=== PATIENT | male | born 1985 | race Caucasian/White ===

== ENCOUNTER → 2022-05-21 13:35 | Outpatient (CLI) | payer OTHER, SELFPAY ==
--- NOTE | ~2022-05-21 | XR_ITS ---
EXAMINATION: XR chest 2V 05/21/2022 14:11 INDICATION: Dyspnea. Night sweats. PROCEDURE: 2 view chest COMPARISON: No prior studies for comparison. FINDINGS: The lungs are clear. The cardiomediastinal silhouette is within normal limits. There are no pleural effusions. There is no pneumothorax suspected. IMPRESSION: 1: NO ACUTE CARDIOPULMONARY DISEASE. Reviewed, dictated and finalized at location A. RMATICS SPEC
== END ==
PROVIDERS: PCP Family Medicine Adolescent Medicine; Visit Provider Family Medicine Adolescent Medicine
DX: R06.09 Other forms of dyspnea (principal); R61 Generalized hyperhidrosis
CPT/HCPCS: 71046

== ENCOUNTER 2024-04-09 08:51 | Outpatient (CLI) | payer OTHER, SELFPAY ==
--- NOTE | 2024-04-17 12:16 | P.SLEEP_ITS ---
Sleep Study - Home Unattended Date of Study: 04/09/24 Ordering Provider: Alvaro Madrid APRN Interpreting Provider: Mervat Collins MD Home Sleep Study Type: Watch PAT Height: 1.8 m Weight: 118.841 kg Body Mass Index: 36.5 Neck Circumference (inches): 21.5 [place]: 4 Reason for Sleep Study Loud snoring, witnessed apnea, sleep is not refreshing, excessive daytime sleepiness Sleep History Diaz Ch is a 38-year-old man with anxiety and hypertension. He was evaluated for loud snoring, witnessed apneas, excessive daytime sleepiness with an [place] of 11 in the office and non restorative sleep. He does not have morning headaches. He does not nap but if an opportunity for a nap presented itself, he thinks he could nap. He does not have drowsy driving. He does become drowsy during work meetings. He does not have uncomfortable feelings in his legs before sleep and does not think he kicks at night. There may be a family history of sleep apnea. He suspects his father has obstructive sleep apnea. He often awakens with a dry mouth or a sore throat in the morning. He does not have nocturnal heartburn. Normally he needs 15 minutes to fall asleep. He uses no sleep aid the night of the test. He generally does not have difficulty falling asleep. When he awakens at night he has difficulty returning to sleep. He is very anxious about sleep. He does not grind his teeth or clench his jaws at night. He denies any uncomfortable leg feelings or kicking. He wakes before his desired wake time. His sleep is never restorative, even on days off. His normal bedtime is 11:00 p.m. falling asleep within 15 minutes spending 6-1/2 hours in bed, 6 hours sleeping. On the day after the home sleep test he woke at 5:00 a.m. without an alarm. His sleep was worse than usual. He wakes 2-3 times during the night to go to the bathroom. He also may wake at night with anxiety related to his work. Habits: Tobacco: None Caffeine: 1-2 cups daily Alcohol: rarely Recreational substances: none PMFSH Past Medical History Medical History Snoring Hypogonadism Elevated liver transaminase level Anxiety Obesity Essential (primary) hypertension Family History Family History Sibling Malignant neoplasm of prostate Social History Social History Smoking status: Never smoker Alcohol intake: current Alcohol use details: rarely Substance use: never Substance use type: does not use Medications Home Medications ?Medication ?Instructions ?Recorded ?Confirmed ?Type needle (disp) 18 G 18 gauge x 1 #10 ea 07/31/23 01/02/24 Rx syringe with needle 3 mL 22 x 1 #10 ea 07/31/23 01/02/24 Rx 1/2 lisinopril 20 mg tablet 20 mg PO DAILY #90 tabs 09/16/23 01/02/24 Rx phentermine 37.5 mg tablet 37.5 mg PO DAILY #30 tabs 01/03/24 Rx testosterone cypionate 100 mg/mL 75 mg (0.75 mL) IM WEEKLY #10 mL 04/06/24 Rx intramuscular oil Sleep Procedure The sleep study was completed using [employer] a technically adequate device with seven channels: peripheral arterial tone, actigraphy, body position, snore, respiratory movement, pulse oximetry, sleep staging, and heart rate. Prior to using the device, the patient received verbal and written instructions for its application and was provided with the help desk phone number for additional telephonic instruction with 24-hour availability of qualified personnel to answer questions. Sleep Architecture The total recording time is 6 hrs, 3 min. The total sleep time is 5 hrs, 37 min. Sleep latency is 18 minutes. REM latency is 97 minutes. The patient had 2 episodes of waking. Sleep architecture shows 18.4% deep sleep, 52.1% light sleep, and 29.5% stage REM. The patient spent 51.6% of total sleep time in the supine position. Sleep efficiency was 92% Respiratory Analysis The overall AHI (pAHI 3%:) is 7.0. The central AHI is 0.6. The AHI was 6.6 in NREM and 7.9 in REM sleep. The AHI was 11.2 in Supine and 2.6 in Non-supine sleep. Percent of Serjio Dodge respirations is 0.0. Oximetry Data The oxygen desaturation index (CELESTE 4%:) is 2.8. The mean saturation is 94%, and the lowest saturation is 89%. Time spent with saturation < 88% is 0.0 minutes. Snoring Profile Snoring average intensity is 41 dB. The patient snored above 45 decibels for 8.6 minutes, 2.6% of sleep time. Cardiac Profile The average pulse rate is 65 beats per minutes. The lowest pulse rate is 48 bpm. The highest pulse rate reported is 97 bpm. Atrial fibrillation was not detected by the cardiac rhythm analysis. Assessment and Plan Assessment and Plan (1) Obstructive sleep apnea: Code(s): G47.33 - Obstructive sleep apnea (adult) (pediatric) Status: Acute Assessment and Plan: This home sleep test using WatchPat on April 09, 2024 shows mild obstructive sleep apnea using a 3% criteria, the apnea-hypopnea index is 7.0 mildly worse in the supine position. Lowest saturation is 89% with mild to moderate snoring. The patient has medical comorbidities including hypertension and mood disorder, anxiety. With these comorbidities he is a candidate for treatment for his obstr uctive sleep apnea. his office note indicates that he is interested in an oral appliance. He is a candidate for a Sleep Dental referral. he is also a candidate for PAP therapy if he is determined not to be a good candidate for an oral appliance. BMI is 36. Weight management is advised. Clinical data suggests that weight loss of 10% can reduce the severity of respiratory events and snoring and i mprove AHI by as much as 25%. Data The data obtained during this sleep study is adequate for interpretation. Certification This sleep study has been reviewed by a board certified sleep medicine physician.
[2024-04-19 11:48] VITALS: BMI 36.5
== END 2024-04-10 14:59 | disposition home or self-care (01) ==
PROVIDERS: PCP Family Medicine Adolescent Medicine; Visit Provider Nurse Practitioner Family
DX: G47.10 Hypersomnia, unspecified (principal); G47.33 Obstructive sleep apnea (adult) (pediatric)
CPT/HCPCS: 95800

== ENCOUNTER 2024-07-26 08:23 | Emergency (ER) | payer OTHER, SELFPAY ==
--- NOTE | ~2024-07-26 | XR_ITS ---
CHEST RADIOGRAPH, PA AND LATERAL CLINICAL HISTORY: cough x 2 weeks . COMPARISON: 05/21/2022 TECHNIQUE: PA and lateral views of the chest. FINDINGS The cardiomediastinal silhouette is unremarkable. Peribronchial thickening is identified within the bilateral pulmonary [place], an interval change from p rior. The lungs are otherwise clear. IMPRESSION: Peribronchial thickening, without focal infiltrate or effusion. Reviewed, dictated and finalized at location A.
--- NOTE | 2024-07-26 08:27 | ED.GENADULT ---
HPI - General Adult General Chief complaint: Upper Respiratory Infection Stated complaint: COUGH/COLD Time Seen by Provider: 07/26/24 08:27 Source: patient Mode of arrival: ambulatory Limitations: no limitations History of Present Illness HPI narrative: 38-year-old male patient presents to the [facility] with complaints of cold symptoms for the past 2 weeks. Any fevers. Patient states that his most bothersome symptom now is a cough and coughing up phlegm. Patient states that time that has some red tinge to it. Patient states he has had a runny nose and some congestion. Patient states he feels like there might be some rattling in his chest. Denies any chest pain or shortness of breath. Denies any abdominal pain, nausea, vomiting or diarrhea. Patient states he is not had any vaccines for COVID or influenza this year. Patient states he did not get tested for COVID or influenza with the symptoms 1st started. Patient states he has been taking [id number] Sudafed, Shaista, Flonase, Tylenol Motrin And Mucinex as needed. Related Data Allergies Allergy/AdvReac Type Severity Reaction Status Date / Time cefaclor (From [facility]) Allergy Mild Rash Verified 07/26/24 08:33 Review of Systems Review of Systems: CONSTITUTIONAL: Denies fever, chills, or sweats. EYES: Denies visual changes, redness, or discharge. ENT: Positive rhinorrhea, congestion, sore throat, denies otalgia. CARDIOVASCULAR: Denies chest pain, palpitations, or edema. RESPIRATORY: pots cough , denies dyspnea. GASTROINTESTINAL: Denies abdominal pain, nausea, vomiting, or diarrhea. GENITOURINARY: Denies dysuria or hematuria. SKIN: Denies rash or itching. MUSCULOSKELETAL: Denies back pain, joint pain, or myalgia. NEUROLOGIC: Denies headache, numbness, or weakness. PSYCHIATRIC: Denies anxiety or depression. [facility] Past Medical History Medical History Snoring Hypogonadism Elevated liver transaminase level Anxiety Obesity Essential (primary) hypertension Family History Family History Sibling Malignant neoplasm of prostate Social History Social History (Reviewed 07/26/24 @ 08:51 by PAULA Saba Smoking status: Never smoker Alcohol intake: current Alcohol use details: rarely Substance use: never Substance use type: does not use Do You Feel Safe in your Home?: Yes Lack of Transportation: No Lack of Food: Never True Current Housing: I Have Housing Concerned About Future Housing: No Difficulty Paying Gas/Electric Bills: No Difficulty Paying for Meds: No Currently Unemployed: No Education: Bachelor's Degree Difficulty w/ Childcare or Family Care: No Comments At the time of my signature I agree with nursing past medical history, surgical, social, and family history. There is no relevant family history pertinent to the presenting complaint. Exam Narrative: GENERAL: Well-appearing, well-nourished, and in no acute distress. HEAD: Normocephalic, atraumatic. EYES: PERRLA and EOMI. ENT: Nares with air edema and erythema and swollen shut noted to the right near, no rhinorrhea or epistaxis. Mucous membranes moist. posterior pharynx with no erythema tonsillar enlargement or exudates lesions present. NECK: Supple. No lymphadenopathy CHEST: Patient has slight crackles noted to bilateral lower lobes on auscultation. Bilateral upper lobes are clear. No respiratory distress. HEART: Regular rate and rhythm. No murmur heard. Normal peripheral pulses. ABDOMEN: Soft, nontender, nondistended, normal active bowel sounds. EXTREMITIES: Normal range of motion. No edema. SKIN: Warm, dry, no rash. NEURO: No focal deficits. Alert and oriented x3. Course Course Level of Care: Express Care Visit Reevaluation(s) Reevaluation #1: re-evaluated patient notified him that his x-ray is negative for pneumonia but does show some wall thickening most likely due to a bronchitis. We will discharge him home with some oral steroids, albuterol inhaler Tessalon Perles for the cough. Discussed with patient if he continues to have symptoms or CIS symptoms worsen please follow-up with his primary doctor go the ER for further evaluation. Patient is aware the plan of care denies any other questions or concerns at this time. Date: 07/26/24 Time: 09:31 Vital Signs Vital signs: Vital Signs Temperature 36.2 C L 07/26/24 08:33 Pulse Rate 98 07/26/24 08:33 Respiratory Rate 16 07/26/24 08:33 Blood Pressure 144/90 H 07/26/24 08:33 Pulse Oximetry 100 07/26/24 08:33 Temperature 36.2 C L 07/26/24 08:33 Pulse Rate 98 07/26/24 08:33 Respiratory Rate 16 07/26/24 08:33 Blood Pressure 144/90 H 07/26/24 08:33 Pulse Oximetry 100 07/26/24 08:33 vital signs reviewed. The patient has been informed that they may have pre-hypertension or Hypertension based on a BP reading in the department. I recommend that the patient call the primary care provider listed on their discharge instructions or a physician of their choice this week to arrange follow up for further evaluation of possible pre-hypertension or Hypertension Medical Decision Making Differential Diagnosis Differential Diagnosis: Differential diagnosis: Allergic rhinitis, chronic sinusitis, tonsillitis, acute sinusitis, infectious mononucleosis, seasonal influenza, pertussis, diphtheria, meningococcal disease, viral syndrome, viral bronchitis, RSV, COVID-19 Vital Signs Vital Signs: Vital Signs Temperature 36.2 C L 07/26/24 08:33 Pulse Rate 98 07/26/24 08:33 Respiratory Rate 16 07/26/24 08:33 Blood Pressure 144/90 H 07/26/24 08:33 Pulse Oximetry 100 07/26/24 08:33 Temperature 36.2 C L 07/26/24 08:33 Pulse Rate 98 07/26/24 08:33 Respiratory Rate 16 07/26/24 08:33 Blood Pressure 144/90 H 07/26/24 08:33 Pulse Oximetry 100 07/26/24 08:33 Lab Data Labs: Lab Results 07/26/24 Range/Units 09:08 POC Grp A Strep Screen Negative (Negative) Imaging Data Radiologist's impression: [facility] [place] [address] [facility] [place] [address] XRay Report Signed Patient: Diaz Ch : 1985 MR#: [id number] Age: 38 Acct:[id number] Loc: [facility] ADM Date: 07/26/24Attending Dr: Ordering Physician: Claudine Hollingsworth APRN Date of Service: 07/26/24 Procedure(s): XR chest 2V Accession Number(s): [id number] cc: Claudine Hollingsworth APRN; Betito Hobson MD~ CHEST RADIOGRAPH, PA AND LATERAL CLINICAL HISTORY: cough x 2 weeks . COMPARISON: 05/21/2022 TECHNIQUE: PA and lateral views of the chest. FINDINGS The cardiomediastinal silhouette is unremarkable. Peribronchial thickening is identified within the bilateral pulmonary [place], an interval change from prior. The lungs are otherwise clear. IMPRESSION: Peribronchial thickening, without focal infiltrate or effusion. Reviewed, dictated and finalized at location A. Critical Care Time Critical Care Time Critical Care Time: No Discharge Plan Discharge Clinical Impression: Bronchitis Patient Disposition: Home, Self-Care Condition: Stable Instructions: Antibiotic Form, Acute Bronchitis (ED) Additional Instructions: Acute bronchitis is swelling and irritation in the air passages of your lungs. This irritation may cause you to cough or have other breathing problems. Acute bronchitis often starts because of another viral illness, such as a cold or the flu. The illness spreads from your nose and throat to your windpipe and airways. Bronchitis is often called a chest cold. Acute bronchitis lasts about 2-6 weeks and is usually not a serious illness. AFTER YOU LEAVE: Medicines: Ibuprofen or acetaminophen: These medicines help lower a fever. They are available without a doctor's order. Ask your healthcare provider which medicine is right for you. Ask how much to take and how often to take it. Follow directions. These medicines can cause stomach bleeding if not taken correctly. Ibuprofen can cause kidney damage. Do not take ibuprofen if you have kidney disease, an ulcer, or allergies to aspirin. Acetaminophen can cause liver damage. Do not drink alcohol if you take acetaminophen. Cough medicine: This medicine helps loosen mucus in your lungs and make it easier to cough up. This can help you breathe easier. Inhalers: You may need one or more inhalers to help you breathe easier and cough less. An inhaler gives your medicine in a mist form so that you can breathe it into your lungs. Ask your healthcare provider to show you how to use your inhaler correctly. Steroid medicine: Steroid medicine helps open your air passages so you can breathe easier. Take your medicine as directed. Call your healthcare provider if you think your medicine is not helping or if you have side effects. How to use an inhaler: Shake the inhaler well to make sure you get the correct amount of medicine per puff. Remove the cover from your inhaler's mouthpiece. If you are using a spacer, connect your inhaler to the flat end of the spacer. Exhale as much air from your lungs as you can. Put the mouthpiece in your mouth past your front teeth and rest it on the top of your tongue. Do not block the mouthpiece opening with your tongue. Breathe in through your mouth at a slow and steady rate. As you do this, press the inhaler to release the puff of medicine. Finish breathing in slowly and deeply as you inhale the medicine. When your lungs are full, hold your breath for 10 seconds. Then breathe out slowly through puckered lips or through your nose. If you need to take more puffs, wait at least 1 minute between each puff. Rinse your mouth with water after you use the inhaler. This may keep you from getting a mouth infection or irritation. Follow the instructions that come with your inhaler to clean it. You should clean your inhaler at least once a week. Ways to care for yourself: Avoid alcohol: Alcohol dulls your urge to cough and sneeze. When you have bronchitis, you need to be able to cough and sneeze to clear your air passages. Alcohol also causes your body to lose fluid. This can make the mucus in your lungs thicker and harder to cough up. Avoid irritants in the air: Do not smoke or allow others to smoke around you. Avoid chemicals, fumes, and dust. Wear a face mask if you must work around dust or fumes. Stay inside on days when air pollution levels are high. If you have allergies, stay inside when pollen counts are high. Avoid aerosol products. This includes spray-on deodorant, bug spray, and hair spray. Drink more liquids: Most people should drink at least 8 eight-ounce cups of water a day. You may need to drink more liquids when you have acute bronchitis. Liquids help keep your air passages moist and help you cough up mucus. Get more rest: You may feel like resting more. Slowly start to do more each day. Rest when you feel it is needed. Eat healthy foods: Eat a variety healthy foods every day. Your diet should include fruits, vegetables, breads, and protein (such as chicken, fish, and beans). Dairy products (such as milk, cheese, and ice cream) can sometimes increase the amount of mucus your body makes. Ask if you should decrease your intake of dairy products. Use a humidifier: Use a cool mist humidifier to increase air moisture in your home. This may make it easier for you to breathe and help decrease your cough. Decrease your risk of acute bronchitis: Get the vaccinations you need: Ask your healthcare provider if you should get vaccinated against the flu or pneumonia. Avoid things that may irritate your lungs: Stay inside or cover your mouth and nose with a scarf when you are outside during cold weather. You should also stay inside on days when air pollution levels are high. If you have allergies, stay inside when pollen counts are high. Avoid using aerosol products in your home. This includes spray-on deodorant, bug spray, and hair spray. Avoid the spread of germs: Wash your hands often with soap and water. Carry germ-killing gel with you. You can use the gel to clean your hands when there is no soap and water available. Do not touch your eyes, nose, or mouth unless you have washed your hands first. Always cover your mouth when you cough. Cough into a tissue or your shirtsleeve so you do not spread germs from your hands. Try to avoid people who have a cold or the flu. If you are sick, stay away from others as much as possible. Follow up with your healthcare provider as directed: Write down questions you have so you will remember to ask them during your follow-up visits. Contact your healthcare provider if: You have a fever. Your skin becomes itchy or you have a rash after you take your medicine. Your breathing problems do not go away or get worse. Your cough does not get better with treatment. You cough up blood. You have questions or concerns about your condition or care. Seek care immediately or call 911 if: You faint. Your lips or fingernails turn blue. You feel like you are not getting enough air when you breathe. You have swelling of your lips, tongue, or throat that makes it hard to breathe or swallow. Patient Language: Albanian Prescriptions: New benzonatate 200 mg capsule 200 mg PO TID PRN (Reason: cough) 10 Days Qty: 30 0RF prednisone 20 mg tablet 40 mg PO DAILY 5 Days Qty: 10 0RF albuterol sulfate [Ventolin HFA] 90 mcg/actuation HFA aerosol inhaler 2 puff INHALATION .Q4 hours PRN (Reason: cough) Qty: 18 0RF No Action (DME) syringe with needle 3 mL 22 x 1 1/2 syringe See Rx Instructions .Route Qty: 10 4RF Rx Instructions: Use once per week to inject testosterone (DME) needle (disp) 18 G 18 gauge x 1 needle See Rx Instructions .Route Qty: 10 4RF Rx Instructions: Use once per week to draw up testosterone lisinopril 20 mg tablet 20 mg PO DAILY Qty: 90 0RF Qsymia 7.5-46 mg capsule, ER multiphase 24 hr 1 cap PO DAILY Qty: 30 2RF testosterone cypionate 100 mg/mL oil 50 mg IM WEEKLY Qty: 6 0RF Follow-up/Referrals: Betito Hobson MD [Primary Care Provider] - Time of Disposition: 09:29
[2024-07-26 08:33] VITALS: BP 144/90; PULSE 98; RESP 16; TEMP 36.2; O2SAT 100
[2024-07-26 09:11] LABS: EDSTREPNEGPOS1 Negative (Negative)
== END 2024-07-26 09:37 | disposition home or self-care (01) ==
PROVIDERS: Emergency Provider Nurse Practitioner Family; PCP Family Medicine Adolescent Medicine
DX: J40 Bronchitis, not specified as acute or chronic (principal); I10 Essential (primary) hypertension; E66.9 Obesity, unspecified; Z68.36 Body mass index [BMI] 36.0-36.9, adult
CPT/HCPCS: 71046; 87081; 87880; 99213; G0463